=== PATIENT | female | born 1990 | race African-American/Black ===

== ENCOUNTER 2017-11-24 18:48 | Emergency (ER) | payer OTHER ==
[~2017-11-24] VITALS: Ht 162.6 cm; Wt 53.6 kg
[2017-11-24] MEDS ORDERED: AMOX TR/POT CLAV 875 MG/125 MG TABLET PO ONE (19:30)
[2017-11-24] MEDS ORDERED: PERTUSS(ACELL),DIPH,TET VAC/PF 0.5 ML VIAL IM ONE (19:30)
[2017-11-24] MEDS ORDERED: POVIDONE-IODINE 10% 15 ML SOLUTION UD TP ONE (19:30)
[2017-11-24] MEDS ORDERED: BACITRACIN 0.9 GM PACKET OINTMENT TP ONE (19:30)
[2017-11-24 20:10] VITALS: BP 119/75
== END 2017-11-24 20:11 | disposition home or self-care (01) ==
LOC: EMS 18:51
DX: S81.051A Open bite, right knee, initial encounter (principal); F12.90 Cannabis use, unspecified, uncomplicated; Z91.018 Allergy to other foods; W54.0XXA Bitten by dog, initial encounter; Y93.89 Activity, other specified; Y92.89 Other specified places as the place of occurrence of the external cause; Y99.8 Other external cause status
CPT/HCPCS: 90471; 90715; 99284